=== PATIENT | female | born 1995 | race Caucasian/White ===

== ENCOUNTER 2019-03-06 19:53 | Emergency (ER) | payer OTHER ==
[~2019-03-06] VITALS: Ht 162.6 cm; Wt 65.3 kg
[2019-03-06 20:12] VITALS: Ht 162.6 cm; Wt 65.3 kg
[2019-03-06 22:16] VITALS: BP 119/74
== END 2019-03-06 22:16 | disposition home or self-care (01) ==
LOC: ED 19:53
DX: R11.2 Nausea with vomiting, unspecified (principal); R19.7 Diarrhea, unspecified; R10.13 Epigastric pain; R51 Headache; R05 Cough
CPT/HCPCS: Q0162